=== PATIENT | male | born 1990 | race Caucasian/White ===

== ENCOUNTER 2017-07-05 16:49 | Observation (INO) | payer OTHER, SELFPAY ==
[2017-07-05] VITALS (8 sets, daily range): BP systolic 127–154; BP diastolic 86–98; PULSE 95–120; RESP 15–18; TEMP 36.2–37.1; O2SAT 90–100; BMI 33.2; BMI 33.3
--- NOTE | 2017-07-05 18:14 | ED.VISSUMM ---
- ER Visit Summary Date of Service: 07/05/17 Chief Complaint: Periumbilical abdominal pain History of Present Illness: The patient is a 26 M has a history of Marfan syndrome this morning developed periumbilical abdominal pain. 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 He was seen in urgent care they were unsure if this is an abscess or hernia or something else since they moved here to be evaluated. He denies any vomiting. No fever. No abdominal trauma. He has never had abdominal surgery. He does have a right inguinal hernia also. That is currently not painful. Physical Examination: Appearing young male. Vital signs are stable afebrile. Pulse ox 90% room air no signs of hypoxia. H EENT exam unremarkable neck nontender lungs clear to auscultation bilaterally. Heart regular rate and rhythm no murmur. Abdomen is soft. Nondistended normal bowel sounds. No peritoneal signs. No signs of obstruction. He does however have a periumbilical hernia that is just anterior to the umbilicus. At about 12:00. It is tender palpation am unable to get to reduce at this time. Moving all 4 extremities. Neurovascularly intact. Nontender no edema. Test Results: CBC and BMP are pending. Emergency Department Course and Treatment: Patient will be given IV morphine. Laid supine. Ice pack to the hernia. Currently Dr. Lake is in the ER is already evaluated the patient. He agrees that this is a incarcerated umbilical hernia and he is going to take him to the OR for repair. Treatment Plan: To the operating room for reduction and fixation Disposition: [] Impression: Acute periumbilical abdominal pain secondary to incarcerated umbilical hernia This note was generated with [employer] dictation software. It may contain incorrect words, spelling, and punctuation that were not noted in review of the chart prior to signing ED Disposition - Plan for ED Patient: Chief Complaint: Abd Pain Referrals: Juan Antonio Hancock III, MD [Primary Care Provider] -
--- NOTE | 2017-07-05 18:16 | ED.RN ---
PT LAYED FLAT ICE PACKS PLACED ON ABD
[2017-07-05] MEDS: Ondansetron 4 MG/2 ML Vial IV (19:19)
[2017-07-05] MEDS: morphine 8 MG/ML Syringe 6 MG IV (19:20)
[2017-07-05 19:30] LABS: Absolute Lymphocyte Count 2.36 X10^3/ul (0.83-4.51); Absolute Neutrophil Count 3.2 X10^3/uL (2.0-7.7); Basophil# 0.01 X10^3/uL; Basophil% 0.2 % (0-1); Eosinophil# 0.08 X10^3/uL; Eosinophils% 1.3 % (0-5); Hematocrit 44.4 % (40-54); Hemoglobin 15.2 g/dl (13.0-16.5); Lymphocyte # 2.36 X10^3/ul (4.0); Lymphocyte % 39.3 % (19-41); Mean Corp Hgb Conc 34.2 g/gl (32-36); Mean Corpuscular Hgb 30.3 pg (27.0-32.0); Mean Corpuscular Volume 88.4 fL (80-94); Monocyte# 0.38 X10^3/uL; Monocyte% 6.3 % (0-10); Neutrophil # 3.15 X10^3/uL (2.7-7.7); Neutrophil % 52.4 % (47-70); Platelet Count 236 K/mm3 (150-450); RBC Distribution Width CV 12.6 % (11.6-14.6); RBC Distribution Width SD 39.8 fl (35.1-43.9); Red Blood Count 5.02 M/mm3 (4.6-6.2)
[2017-07-05 19:34] LABS: POSITIVE COUNT NO; POSITIVE DIFFERENTIAL NO; POSITIVE MORPHOLOGY NO
--- NOTE | 2017-07-05 19:45 | HP.PCM_ITS ---
Problem List (1) Umbilical hernia with obstruction Status: Acute (2) Bipolar 1 disorder Status: Chronic (3) Marfanoid habitus Status: Acute History of Present Illness Date of Admission: 07/05/17 The patient is a 26 year old M who noted discomfort in his umbilicus last night. The pain worsened today. He noted a bulge at his umbilicus. He had pizza for lunch. He was then nauseated -no vomiting. He presented to the ER and was found to have a non reducible umbilical hernia. He is tall - 6'4 and has a questionable family history of Marfan's syndrome. He states he was evaluated as a teenager but did not return for follow up or testing. He understands two of his brother's have leaky heart valves. Past Medical History Past Medical History (Chronic Problems): Chronic Problems Bipolar 1 disorder (Chronic) Allergies VINEGAR Adverse Reaction (Uncoded 07/05/17 16:52) Other Home Medications: Ambulatory Orders Medication Instructions Recorded Albuterol Inhaler [Ventolin Hfa] 1 puff INHALATION Q4H PRN PRN 11/14/16 Desvenlafaxine Succinate [Pristiq] 50 mg PO DAILY 11/14/16 Lamotrigine 50 mg PO DAILY 07/05/17 Ibuprofen [Motrin] 400 mg PO Q4H PRN PRN tablet 07/06/17 Oxycodone [Oxyir] 5 mg PO Q4H PRN PRN 6 Days #14 tab 07/06/17 Surgical History: no surgical history Smoking Status: Never smoker Review of Systems Constitutional: Denies: Chills, Fever, Weight Change HEENT: Denies: Head Aches, Sinus Congestion, Sinus Drainage Cardiovascular: Denies: Chest Pain, Palpitations Respiratory: Denies: Cough, Shortness of breath at rest, Sputum production Gastrointestinal: Reports: Abdominal Pain. Denies: Nausea, Vomiting Genitourinary: Denies: Dysuria Musculoskeletal: Denies: Joint Pain, Joint Tenderness Skin: Denies: Rash, Wounds Neurological: Denies: Numbness, Tingling, Focal weakness Psychiatric: Denies: Anxiety, Depression, Homicidal Ideations, Suicidal Ideations Hematologic/ Lymphatic: Denies: Easy Bruising, Easy Bleeding VTE Information - Inpt Only VTE Present on Admission: No VTE Mechan Device Prophylaxis: SCD's Patient Problems: Active and Suspected Problems Umbilical hernia with obstruction (Acute) Marfanoid habitus (Acute) - Physical Exam General: Alert, Oriented x3 Lungs: Clear to auscultation, Normal air movement Cardiovascular: Regular rate, Regular Rhythm, No Ectopic Activity Abdomen: Bowel Sounds Present, Soft, Tender - at umbilicus - 3cm non reducible umbilical hernia Vital Signs Temp Pulse Resp BP Pulse Ox 98.4 F 95 15 144/95 H 100 07/05/17 19:25 07/05/17 19:25 07/05/17 19:25 07/05/17 19:25 07/05/17 19:25 Oxygen Delivery Method Room Air Weight: 123.831 kg Body Mass Index (BMI) 33.2 Laboratory Tests Past 24 Hrs 07/05/17 07/05/17 19:10 19:10 WBC 6.0 RBC 5.02 Hgb 15.2 Hct 44.4 MCV 88.4 MCH 30.3 MCHC 34.2 RDW 12.6 RDW Differential 39.8 Plt Count 236 MPV 9.0 Immature Gran % (Auto) 0.500 Neut % (Auto) 52.4 Lymph % (Auto) 39.3 Loving % (Auto) 6.3 Eos % (Auto) 1.3 Baso % (Auto) 0.2 Absolute Neuts (auto) 3.2 Absolute Lymphs (auto) 2.36 Total Counted Not Reportable Sodium Pending Potassium Pending Chloride Pending Carbon Dioxide Pending Anion Gap Pending BUN Pending Creatinine Pending Est GFR (MDRD) Af Amer Pending Est GFR (MDRD) Non-Af Pending BUN/Creatinine Ratio Pending Glucose Pending Calcium Pending Assessment/Plan Active and Suspected Problems Umbilical hernia with obstruction (Acute) Marfanoid habitus (Acute) Umbilical hernia patient has a nonreducible umbilical hernia. I feel this is emergent, as this may contain bowel given his symptoms of nausea. We'll plan for emergency umbilical hernia repair. I discussed with the patient that since this will be inflamed. I will not put mesh in and there is an increased risk of recurrence. The patient understands the risks, benefits, possible complications and alternatives to surgical intervention. The patient consents to surgery. Questionable Marfan syndrome The patient is 6 foot 4 and has taller brothers. The patient understands that he may have Marfan syndrome. he was evaluated when she was in his teenage years at [facility]. He understands his brothers have weekly heart valves. He was told he had mild heart enlargement. I cannot find records of an echocardiogram. A chest x-ray demonstrates no aortic knob abnormalities or cardiac enlargement from 2 years previously. I feel again its importantly proceed with emergency surgery. I will plan to obtain an EKG, chest x-ray and echocardiogram postoperatively to risk stratify this patient.
--- NOTE | 2017-07-05 20:00 | HERN_PTH ---
PATIENT: ANTHONY LLOYD LOC: MS3 U#:[id number] AGE/SX: 26/M ROOM: MS314 RE07/05/[address]: Dr. Julian Oden MD : [id number] BED: 1 DIS: 07/06/2017 SPEC #: [id number] RECD: 07/08/17 08:02 STATUS: EMILY DOREEN #: [id number] PIERCE: 07/05/17 20:[address]: Julian Oden DEPT: SURGICAL PATHOLOGY RECD BY: Julian Avalos ENTERED: 07/08/17 13:04 SP TYPE: Hernia OTHR DR: Dr. Juan Antonio Hancock III, MD Tissues: HERNIA Procedures: Surgery Specimen Level II HEADER OPERATION: Hernia, umbilical repair PRE-OP DIAGNOSIS: Incarcerated umbilical hernia TISSUE SUBMITTED: Hernia sac and contents MICROSCOPIC DIAGNOSIS Hernia sac and contents, excision: Fibrosis, chronic inflammation and focal recent hemorrhage into fatty tissue. AM:sonny 07/09/17 COMMENT The findings are consistent with hernia sac and contents. Clinical correlation is suggested. MICROSCOPIC DESCRIPTION Slides are reviewed. GROSS DESCRIPTION Received in fixative is one container labeled with the patient's name and designated hernia sac and contents. The specimen consists of three variable size pieces of yellow adipose tissue measuring in aggregate 5 x 5 x 2 cm. A piece of hemorrhagic tissue is also noted measuring 1.5 x 1 x 0.6 cm. No mass lesion is identified. Chemistry Technician sections are submitted in two cassettes. Cassette 2 contains the bisected hemorrhagic piece, entirely submitted. / SJ:rg 07/08/17 TC:5 CPT: 41022
[2017-07-05 20:03] LABS: Anion Gap 7 (5-15); BUN 14 mg/dL (7-18); Calcium,Total 9.2 mg/dL (8.5-10.1); Chloride 106 mmol/L (98-107); Creatinine, Serum 0.82 mg/dL (0.70-1.30); EST Glomerular Filtration Rate 118 mL/min (>60); Est Glom Filt Rate - Afr Amer 142 mL/min (>60); Estimated Creatinine Clearance 164.66 ml/min; Glucose 87 mg/dL (74-106); Potassium 3.9 mmol/L (3.5-5.1); Sodium Level 141 mmol/L (136-145)
[2017-07-05] MEDS: Bupivacaine Mpf 0.5% 30 ML VIAL (21:00)
--- NOTE | 2017-07-05 21:04 | PCM.OPRPT ---
Problem List (1) Umbilical hernia with obstruction Status: Acute (2) Bipolar 1 disorder Status: Chronic Report of Operation Date of Procedure: 07/05/17 Pre-Operative Diagnosis: incarcerated umbilical hernia Post-Operative Diagnosis: incarcerated umbilical hernia - omentum Surgery/Procedure Performed:: repair of incarcerated umbilical hernia senior media director: Latasha Hooker Type of Anesthesia:: General Anesthesiologist: Avery Crowley - [id number] Specimen's removed: hernia sac and omentum Estimated Blood Loss (mL): 50 Fluids Replaced: 700 Description of Procedure: The patient was brought to the operating suite. Sign in was performed verifying patient, site, procedure, position, and DVT prophylaxis with SCDs. Patient received 3g Ancef antibiotic prophylaxis. this was deemed to be an emergency operation due to incarcerated mass at the umbilical hernia that was nonreducible. The patient had a questionable history of Marfan syndrome, which had not been appropriately worked up. I discussed the risks of undiagnosed Marfan syndrome with the patient and the anesthesiologist and we concur that this is an emergency. Following induction of general anesthetic, the patients abdomen was prepped and draped in the usual fashion. Timeout was performed verifying patient, site, position. Local anesthetic was injected . A curvilinear incision was made and dissection carried down to the umbilical root fascia. Dissection was continued around the umbilical root and the umbilical skin was dissected off the hernia sac. An extraperitoneal space was created. an inflamed, thickened hernia sac just above the root of the umbilicus was encountered. This was opened and infarcted and edematous fat felt to be consistent with omentum was encountered in the sac. The fascial defect was made in order of 2-3 mm and this fat could not be reduced. This was amputated with electrocautery. The defect with the incarcerated omentum/fat was approximately 1 cm superior to where the umbilical root was attached to the umbilical fascial site. The fascia between this tissue was opened. The fascia itself was edematous. Due to this being an incarcerated emergent case, the defect was closed with interrupted 0 Prolene oxfixz-hi-hatng sutures. Following this the umbilical root was tacked back down with a 3-0 Vicryl suture. Subcutaneous fat was closed with interrupted 3-0 Vicryl suture. Skin was closed with a running 4-0 Monocryl subcuticular sutures. Steri-Strips and bandages were applied. The patient was brought to recovery room in stable condition. - Admit VTE Documentation VTE Present on Admission: No VTE Mechan Device Prophylaxis: SCD's
--- NOTE | 2017-07-05 21:31 | EKG12_ITS ---
Test Reason : Blood Pressure : / mmHG Vent. Rate : 113 BPM Atrial Rate : 113 BPM P-R Int : 176 ms QRS Dur : 116 ms QT Int : 324 ms P-R-T Axes : 050 064 041 degrees QTc Int : 444 ms Sinus tachycardia Otherwise normal ECG No previous ECGs available Confirmed by MEGAN LUTHER, TERESA ([id number]), marketing editor PEPE PARKS ([id number]) on 07/16/2017 1:44:03 PM Referred By: JOLANTA Confirmed By:TERESA GUZMAN MD
--- NOTE | 2017-07-05 21:31 | ECHOD_ITS ---
Reason For Study: Congenital heart disease Procedure This was a 2D Doppler, Color Flow transthoracic echocardiogram. Exam performed portable in patient room. Left Ventricle Normal size and thickness. The estimated ejection fraction is 65 %. Normal diastology for age. No regional wall motion abnormalities noted. Right Ventricle Normal size and thickness. Normal systolic function. Atria Normal left atrium. Normal right atrium. Normal atrial septum. Mitral Valve The mitral valve is structurally normal. No prolapse or stenosis seen. Trivial mitral valve insufficiency. Tricuspid Valve Normal tricuspid valve. Trivial tricuspid valve insufficiency. Right ventricular systolic pressure estimated to be 20 mmHg. Aortic Valve Normal aortic valve. Trisinus/trileaflet aortic valve. Pulmonic Valve Normal pulmonic valve. Trivial pulmonic valve insufficiency. Great Vessels Normal aortic root. Normal arch. Normal inferior vena cava. Inferior vena cava collapse with sniff. Pericardium/Pleural No pericardial effusion. MMode/2D Measurements & Calculations LVIDd: 5.2 cm IVSd: 1.1 cm Ao root diam: 3.2 cm LVIDs: 3.4 cm LVPWd: 0.94 cm LA dimension: 3.6 cm RVDd: 4.8 cm FS: 35.6 % LAV(MOD-bp): 61.8 ml LA A4 area: 18.0 cm2 RA A4 area: 14.9 cm2 LAV(MOD-bp) Indexed: 24.5 ml/m2 LAV(MOD-sp2): 71.2 ml LAV(MOD-sp4): 46.1 ml Doppler Measurements & Calculations MV E max phani: 86.0 cm/sec Lat Peak E' Phani: 14.6 cm/sec Med Peak E' Phani: 8.8 cm/sec MV A max phani: 47.8 cm/sec E/E' lat: 5.9 E/E' med: 9.7 MV E/A: 1.8 Ao V2 max: 141.8 cm/sec LV V1 max: 129.0 cm/sec PA V2 max: 150.1 cm/sec Ao max P.0 mmHg LV V1 max P.7 mmHg Ao V2 mean: 105.2 cm/sec Ao mean P.8 mmHg Ao V2 VTI: 29.8 cm TR max phani: 194.0 cm/sec TR max P.1 mmHg Interpretation Summary The estimated ejection fraction is 65 %. Normal diastology for age. Trivial mitral valve insufficiency. Trivial tricuspid valve insufficiency. Right ventricular systolic pressure estimated to be 20 mmHg. There is no comparison study available. Ordering Physician: Julian Oden Referring Physician: Juan Antonio Hancock Performed By: Joy Baez RDCS, RVT
--- NOTE | 2017-07-05 22:11 | RAD_ITS ---
STUDY: X-RAY CHEST REASON FOR EXAM: Male, 26 years old. Chronic cough. TECHNIQUE: AP and lateral views of the chest. COMPARISON: May 17, 2015 FINDINGS: There is a left basilar linear opacity. Normal size heart. Normal mediastinum and caryn. Normal visualized pulmonary arteries. Normal visualized aortic arch and descending thoracic aorta. Normal visualized thoracic spine. Normal visualized ribs, clavicles, and shoulders. There is no demonstrated abnormality of the visualized soft tissue structures of the upper abdomen. RAD/Chest PA and Lateral IMPRESSION: Left basilar atelectasis. Electronically Signed: Sayda Choe MD at 22:31 EDT Tel , Service support ,
[2017-07-06 00:58] VITALS: BP 144/99; PULSE 93; RESP 16; TEMP 36.7; O2SAT 94
[2017-07-06] MEDS: Ibuprofen 400 MG Tablet PO ×2 (01:07→06:21)
[2017-07-06] MEDS: Lactated Ringers 1,000 ML 75 ML IV (01:08)
[2017-07-06 03:05] VITALS: BP 106/60; PULSE 76; RESP 16; TEMP 36.6; O2SAT 95
[2017-07-06] MEDS: Cefazolin 1 GM/50 ML BAG IV (06:21)
[2017-07-06 07:22] LABS: Absolute Neutrophil Count 4.9 X10^3/uL (2.0-7.7); Basophil# 0.02 X10^3/uL; Basophil% 0.3 % (0-1); Eosinophil# 0.03 X10^3/uL; Eosinophils% 0.4 % (0-5); Hematocrit 41.6 % (40-54); Hemoglobin 13.9 g/dl (13.0-16.5); Lymphocyte % 25.6 % (19-41); Mean Corp Hgb Conc 33.4 g/gl (32-36); Mean Corpuscular Hgb 29.9 pg (27.0-32.0); Mean Corpuscular Volume 89.5 fL (80-94); Monocyte# 0.52 X10^3/uL; Neutrophil # 4.92 X10^3/uL (2.7-7.7); Neutrophil % 66.4 % (47-70); Platelet Count 217 K/mm3 (150-450); RBC Distribution Width CV 12.7 % (11.6-14.6); RBC Distribution Width SD 40.6 fl (35.1-43.9); Red Blood Count 4.65 M/mm3 (4.6-6.2); White Blood Count 7.4 K/mm3 (4.4-11.0)
[2017-07-06 07:24] LABS: POSITIVE COUNT NO; POSITIVE DIFFERENTIAL NO; POSITIVE MORPHOLOGY NO
[2017-07-06 07:50] LABS: Anion Gap 7 (5-15); BUN 11 mg/dL (7-18); BUN/Creat Ratio 13.7 RATIO (10-20); Calcium,Total 8.1 mg/dL (8.5-10.1); Chloride 104 mmol/L (98-107); EST Glomerular Filtration Rate 122 mL/min (>60); Est Glom Filt Rate - Afr Amer 147 mL/min (>60); Estimated Creatinine Clearance 168.78 ml/min; Glucose 99 mg/dL (74-106); Potassium 3.3 mmol/L (3.5-5.1); Sodium Level 138 mmol/L (136-145)
--- NOTE | 2017-07-06 08:04 | DCINST_ITS ---
Discharge Diet: Light diet - advance as tolerated Discharge Activity: Return to Normal Activity, May Drive - when you are no longer taking narcotic pain medications., May Shower - with the bandage in place 1-2 days after surgery. Lifting Restrictions: 20 pounds for 8 weeks. Additional Activity Instructions:: Climbing stairs is fine, walking is encouraged. Sitting in bed may be uncomfortable. Sitting up using your lateral muscles (sitting up sideways) is usually more comfortable. Do not drive, work heavy equipment of sign legal documents for 24 hours. If your hernia repair was an ingunial repair, you may have scrotal swelling, an ice pack and/or athletic support can provide more comfort. Pain medications may cause nausea, you should typically eat light foods as you take your pain medications. Pain medications may also cause constipation. If you have difficulty with this, discuss with your doctor. Call your doctor if your incision/area has: Continuous Slow Oozing, Sudden Increased Bleeding, Increased Pain/ Swelling, Increased Redness, Foul Smelling Discharge Call your doctor if you observe: Fever of 101 or Higher Suture Line Care: Avoid Pulling/Pushing, Avoid Pinching/Bending Additional Dressing/Incision Instructions:: Leave the operative bandage on for 2 -3 days. When you remove the bandage, leave the steri-strips on place until your follow up appointment or they fall off. Allergies/Adverse Reactions: Allergies VINEGAR Adverse Reaction (Uncoded 07/05/17 16:52) Other Medications to take at Discharge Albuterol Inhaler [Ventolin Hfa] 1 puff INHALATION Q4H PRN PRN 11/14/16 Desvenlafaxine Succinate [Pristiq] 50 mg PO DAILY 11/14/16 Lamotrigine 50 mg PO DAILY 07/05/17 Ibuprofen [Motrin] 400 mg PO Q4H PRN PRN tablet 07/06/17 Oxycodone [Oxyir] 5 mg PO Q4H PRN PRN 6 Days #14 tab 07/06/17 The following prescriptions were given: Oxycodone [Oxyir] 5 mg PO Q4H PRN PRN 6 Days #14 tab PRN Reason: Severe Pain (6-10/10) Primary Care Physician: Juan Antonio Hancock III, MD [Primary Care Provider] - Please Follow Up With: Julian Oden MD - [phone] When: Plan to have a follow up appointment in 7 days. Call to schedule.
--- NOTE | 2017-07-06 08:58 | DS.PCM_ITS ---
Discharge Date and Diagnosis - Problem List Patient Problems: Active and Suspected Problems Umbilical hernia with obstruction (Acute) Marfanoid habitus (Acute) Date of Admission: 07/05/17 Date of Discharge: 07/06/17 - Primary Discharge Diagnosis Active and Suspected Problems Umbilical hernia with obstruction (Acute) Marfanoid habitus (Acute) - Secondary Discharge Diagnosis Chronic Problems Bipolar 1 disorder (Chronic) Hospital Course and Treatment Operations: herniorrhaphy Summary of Care Provided: The patient is a 26 year old M with a one-day history of an incarcerated/ strangulated slightly supraumbilical hernia and a questionable history of Marfan syndrome. The patient was brought to the operating suite. Due to the risk of incarcerated/strangulated bowel and underwent emergency umbilical/ ventral hernia repair. This was performed without mesh. The patient was noted to have incarcerated, infarcted fat likely omentum. The patient did well postoperatively had return of bowel activity by auscultation but no flatus, but was felt to be reasonable for discharge to home. He is instructed to be discharged home on clear liquids until he is passing flatus. The patient has a known inguinal hernia. Given his diagnosis of Marfan syndrome as a possibility, I had ordered an EKG and chest x-ray and echocardiogram. Chest x-ray was unremarkable and demonstrated no dilatation of the aortic root or knob. EKG demonstrated tachycardia without other specific abnormalities. Echocardiogram is pending. The patient will follow-up in my office. We will evaluate these above tests and decide whether he needs additional workup for the possibility of Marfan syndrome. Discharge Diet: Light diet - advance as tolerated Discharge Activity: Return to Normal Activity, May Drive - when you are no longer taking narcotic pain medications., May Shower - with the bandage in place 1-2 days after surgery. Additional Activity Instructions:: Climbing stairs is fine, walking is encouraged. Sitting in bed may be uncomfortable. Sitting up using your lateral muscles (sitting up sideways) is usually more comfortable. Do not drive, work heavy equipment of sign legal documents for 24 hours. If your hernia repair was an ingunial repair, you may have scrotal swelling, an ice pack and/or athletic support can provide more comfort. Pain medications may cause nausea, you should typically eat light foods as you take your pain medications. Pain medications may also cause constipation. If you have difficulty with this, discuss with your doctor. Call your doctor if your incision/area has: Continuous Slow Oozing, Sudden Increased Bleeding, Increased Pain/ Swelling, Increased Redness, Foul Smelling Discharge Call your doctor if you observe: Fever of 101 or Higher Suture Line Care: Avoid Pulling/Pushing, Avoid Pinching/Bending Additional Dressing/Incision Instructions:: Leave the operative bandage on for 2 -3 days. When you remove the bandage, leave the steri-strips on place until your follow up appointment or they fall off. Home Medications: Medications to take at Discharge Albuterol Inhaler [Ventolin Hfa] 1 puff INHALATION Q4H PRN PRN 11/14/16 Desvenlafaxine Succinate [Pristiq] 50 mg PO DAILY 11/14/16 Lamotrigine 50 mg PO DAILY 07/05/17 Ibuprofen [Motrin] 400 mg PO Q4H PRN PRN tablet 07/06/17 Oxycodone [Oxyir] 5 mg PO Q4H PRN PRN 6 Days #14 tab 07/06/17 Following Prescrptions Were Given to Patient: Oxycodone [Oxyir] 5 mg PO Q4H PRN PRN 6 Days #14 tab PRN Reason: Severe Pain (6-10/10) Primary Care Physician: Juan Antonio Hancock III, MD [Primary Care Provider] - Please Follow Up With: Julian Oden MD - [phone] When: Plan to have a follow up appointment in 7 days. Call to schedule. Medical Necessity - Tobacco Use Smoking Status: Never smoker Meaningful Use Info Meaningful Use Diagnoses (Choose all that apply): None applicable
[2017-07-06 09:40] VITALS: BP 127/93; PULSE 74; RESP 16; TEMP 36.7; O2SAT 96
[2017-07-06] MEDS: lamoTRIgine 25 MG Tablet 50 MG PO (10:10)
[2017-07-06 12:20] VITALS: BP 137/74; PULSE 93; RESP 18; TEMP 36.7; O2SAT 97
== END 2017-07-06 12:38 | disposition home or self-care (01) ==
LOC: ED 18:51 → SDC 19:35 → AC 19:35 → SDC 21:39 → MS3 07-09 07:09
PROVIDERS: Admitting Provider Surgery; Emergency Provider Emergency Medicine; Family Provider Family Medicine; PCP Family Medicine; Visit Provider Surgery
PROC: (CPT 49587; principal; 2017-07-05 20:00)
DX: K42.0 Umbilical hernia with obstruction, without gangrene (principal); Z79.899 Other long term (current) drug therapy; J45.909 Unspecified asthma, uncomplicated; F31.9 Bipolar disorder, unspecified
CPT/HCPCS: 00830; 49587; 36415; 71046; 80048; 85025; 88302; 93005; 93306; 96361; 96365; 96375; 99218; 99283; J7120; Q9957; A4216; G0378; J2405